=== PATIENT | female | born 1980 | race Two or more races ===

== ENCOUNTER 2017-08-18 22:07 | Emergency (ER) | payer SELFPAY ==
[2017-08-18] MEDS ORDERED: ORPHENADRINE CITRATE 60 MG/2 ML VIAL. IM (22:30)
[2017-08-18] MEDS ORDERED: KETOROLAC 60 MG/2 ML INJ. IM (22:30)
[2017-08-18] MEDS ORDERED: KETOROLAC 60 MG/2 ML INJ. (22:45)
[2017-08-18] MEDS ORDERED: ORPHENADRINE CITRATE 60 MG/2 ML VIAL. (22:46)
== END 2017-08-18 22:38 | disposition home or self-care (01) ==
LOC: ER 22:07
DX: S29.012A Strain of muscle and tendon of back wall of thorax, initial encounter (principal); G43.909 Migraine, unspecified, not intractable, without status migrainosus; X58.XXXA Exposure to other specified factors, initial encounter; Y93.89 Activity, other specified; Y99.8 Other external cause status; Y92.89 Other specified places as the place of occurrence of the external cause
CPT/HCPCS: 99283